=== PATIENT | female | born 1995 | race Two or more races ===

== ENCOUNTER 2017-12-04 11:55 | Emergency (ER) | payer MEDICAID ==
[~2017-12-04] VITALS: Ht 165.1 cm; Wt 93.4 kg
--- NOTE | 2017-12-04 12:05 | NUR ---
PRESENTS TO ER C/O LUQ ADBOMINAL PAIN, 03/28, SHARP X 2 DAYS. +N/-V. A/OX 4. BREATHING EVEN AND UNLABORED. NO SOB. VITALS STABLE. SAFETY AND COMFORT MEASURES IN PLACE. AWAITING MD ORDERS.
[2017-12-04] MEDS ORDERED: ACETAMINOPHEN ES 500 MG TABLET ONE (13:05)
[2017-12-04] MEDS ORDERED: ONDANSETRON 4 MG TAB.RAPDIS ONE (13:05)
[2017-12-04] MEDS ORDERED: ACETAMINOPHEN ES 500 MG TABLET PO ONE (13:30)
[2017-12-04] MEDS ORDERED: ONDANSETRON HCL 4 MG/5 ML SOLUTION PO ONE (13:30)
[2017-12-04 14:06] VITALS: BP 132/81
--- NOTE | 2017-12-04 14:07 | NUR ---
Patient discharged to home in stable condition. Written and verbal after care instructions given. Patient verbalizes understanding of instruction.
== END 2017-12-04 14:07 | disposition home or self-care (01) ==
LOC: ER 11:56
DX: R07.89 Other chest pain (principal)
CPT/HCPCS: 71045; 84703; 99285; A4606; Q0162; Z7610